=== PATIENT | female | born 1955 | race Caucasian/White ===

== ENCOUNTER 2018-01-06 14:32 | Outpatient (CLI) | payer OTHER ==
[~2018-01-06 14:32] MED LIST: ANGELIQ 0.5 MG/1 TAB PO; TARKA 2/1801 BOTTLE PO
== END 2018-01-06 14:33 | disposition home or self-care (01) ==
LOC: NUCLEAR 14:32
DX: D70.8 Other neutropenia (principal); D69.6 Thrombocytopenia, unspecified
CPT/HCPCS: 78215; A9541

== ENCOUNTER → 2018-02-01 | Emergency (ER) | payer OTHER ==
[~2018-02-01] VITALS: Ht 170.2 cm; Wt 70.8 kg
[~2018-02-01] MED LIST changes: +CEPHALEXIN500 M1 PO; +FLONASE ALLERG9.9 ML NASAL; +MEDROLPACK PO; +TAMS0.4C PO
== END | disposition home or self-care (01) ==
LOC: ER 22:58
DX: R10.32 Left lower quadrant pain (principal); N20.2 Calculus of kidney with calculus of ureter; J32.8 Other chronic sinusitis

== ENCOUNTER 2019-06-15 10:22 | Outpatient (CLI) | payer OTHER | END 2019-06-15 17:00 | disposition home or self-care (01) | LOC: TOM 10:22 | DX: B19.20 Unspecified viral hepatitis C without hepatic coma (principal); R10.84 Generalized abdominal pain ==

== ENCOUNTER → 2020-09-07 | Outpatient (CLI) | payer OTHER | END | disposition home or self-care (01) | LOC: OFIC 805 15:11 | PROVIDERS: ATTEND Otolaryngology | DX: J34.2 Deviated nasal septum (principal); J30.89 Other allergic rhinitis; R09.81 Nasal congestion ==

== ENCOUNTER 2021-01-31 10:00 | Day surgery (SDC) | payer OTHER ==
[~2021-01-31] VITALS: Ht 167.6 cm; Wt 68.5 kg
[2021-01-31] MEDS ORDERED: ELETRIPTAN HBR40 MG (11:55)
[2021-01-31] MEDS ORDERED: PERCOCET 5-3251 EACH PO (14:22)
[2021-01-31] MEDS ORDERED: ALEVE220 M1 PO (14:22)
[2021-01-31] MEDS ORDERED: DUI500 PO (14:22)
== END 2021-01-31 17:20 | disposition home or self-care (01) ==
LOC: CIR.AMB 10:00 → EDSTATUS 10:15 → SEC-K 15:26 → O/R 15:26 → CIR.AMB 17:20
PROVIDERS: ATTEND General Practice
DX: S52.532A Colles' fracture of left radius, initial encounter for closed fracture (principal); S52.612A Displaced fracture of left ulna styloid process, initial encounter for closed fracture; Z20.822 Contact with and (suspected) exposure to COVID-19
CPT/HCPCS: 25609; 20902; 25652; C1776

== ENCOUNTER 2021-08-04 08:00 | Outpatient (CLI) | payer OTHER ==
[~2021-08-04 08:00] MED LIST changes: +ALEVE220 M1 PO; +DICLOFENAC POTA50 MG PO; +DUI500 PO; +ELETRIPTAN HBR40 MG; +METHOCARBAMOL500 MG PO; +NABUMETONE750 MG PO; +PERCOCET 5-3251 EACH PO; +VOLTAREN ARTHRI20 GM TOP
== END 2021-08-04 08:30 | disposition home or self-care (01) ==
LOC: PPH VACUNA 08:00
PROVIDERS: ATTEND Emergency Medicine Pediatric Emergency Medicine
DX: Z23 Encounter for immunization (principal)

== ENCOUNTER 2022-04-25 21:44 | Emergency (ER) | payer OTHER ==
[~2022-04-25] VITALS: Ht 165.1 cm; Wt 74.8 kg
[2022-04-26] MEDS ORDERED: PEPCID40 MG PO (06:44)
== END 2022-04-26 07:28 ==
LOC: ER 21:44
DX: R11.10 Vomiting, unspecified (principal)

== ENCOUNTER 2022-09-19 14:53 | Outpatient (CLI) | payer OTHER ==
[~2022-09-19 14:53] MED LIST changes: +PEPCID40 MG PO
== END 2022-09-19 15:09 | disposition home or self-care (01) ==
LOC: RAD 14:53
PROVIDERS: ATTEND Chiropractor
DX: M76.62 Achilles tendinitis, left leg (principal)

== ENCOUNTER 2023-06-18 07:45 | Emergency (ER) | payer OTHER ==
[~2023-06-18] VITALS: Ht 167.6 cm; Wt 66.2 kg
== END 2023-06-18 10:19 | disposition home or self-care (01) ==
LOC: ER 07:45
DX: M54.89 Other dorsalgia (principal)

== ENCOUNTER 2023-08-26 13:50 | Outpatient (CLI) | payer OTHER | END 2023-08-26 15:00 | disposition home or self-care (01) | LOC: MAMO-SONO 13:50 | PROVIDERS: ATTEND General Practice | DX: N64.59 Other signs and symptoms in breast (principal); Z12.31 Encounter for screening mammogram for malignant neoplasm of breast ==

== ENCOUNTER 2023-09-09 13:00 | Outpatient (CLI) | payer OTHER | END 2023-09-09 13:01 | disposition home or self-care (01) | LOC: NUCLEAR 13:00 | PROVIDERS: ATTEND General Practice | DX: M19.90 Unspecified osteoarthritis, unspecified site (principal) ==

== ENCOUNTER 2024-07-19 05:27 | Emergency (ER) | payer OTHER ==
[~2024-07-19] VITALS: Ht 167.6 cm; Wt 66.7 kg
[2024-07-19] MEDS ORDERED: FAMOTIDINE/PF 20 MG in 0.9 % SODIUM CHLORIDE 8 ML IV PUSH STA (05:50)
[2024-07-19] MEDS ORDERED: HYOSCYAMINE SULFATE 0.125 MG TAB.SUBL ONE (05:52)
[2024-07-19] MEDS ORDERED: FAMOTIDINE/PF 20 MG/2 ML VIAL ONE (05:53)
[2024-07-19] MEDS ORDERED: DIPHENOXYLATE HCL/ATROPINE 1 UDTAB TABLET PO ONE (06:00)
[2024-07-19] MEDS ORDERED: 0.9 % SODIUM CHLORIDE 1,000 ML IV SCH (06:00)
[2024-07-19] MEDS ORDERED: HYOSCYAMINE SULFATE 0.125 MG TAB.SUBL SL ONE (06:00)
[2024-07-19 08:03] LABS: ALBUMIN 3.6 gm/dL (3.4-5.0); BILIRUBIN TOTAL 0.45 mg/dL (0.3-1.2); CALCIUM 8.8 mg/dL (8.5-10.1); CREATININE SERUM 0.51 mg/dL (0.55-1.02); GFR 120.65; GLOBULINA 3.3 G/DL (2.4-3.5); POTASSIUM 3.71 mEq/L (3.5-5.1); TOTAL PROTEIN 6.9 gm/dL (6.4-8.2)
[2024-07-19 08:23] LABS: HEMATOCRIT 40.1 % (36.0-45.00); HEMOGLOBIN 13.9 g/dL (12.0-15.00); MEAN CORPUSCULAR HEMOGLOBIN 30.1 pg (27.00-32.0); MEAN CORPUSCULAR HGB CONC 34.5 g/dl (32.0-36.0); RED BLOOD COUNT 4.61 M/uL (4.00-6.00); RED CELL DISTRIBUTION WIDTH 13.3 % (11.5-14.5)
[2024-07-19 08:52] LABS: PLATELET COUNT 88 K/uL (150-450)
[2024-07-19 09:21] LABS: URINE APPEARANCE Turbid; URINE BILIRRUBIN Negative (NEGATIVE); URINE BLOOD Negative; URINE COLOR Yellow; URINE GLUCOSE Negative (NEGATIVE); URINE KETONE Negative (NEGATIVE); URINE LEUKOCYTE Negative; URINE NITRATE Negative; URINE PROTEIN Negative (NEGATIVE)
[2024-07-19 09:32] LABS: URINE BACTERIA 331.3 uL (0.0-1933); URINE EPITHELIAL CELLS 51.7 uL (0.0-38.8); URINE RBC 6.1 uL (0.0-20.8); URINE WBC 9.7 uL (0.0-23.2)
[2024-07-19 09:39] LABS: URINE CAST 0.45 uL (0.0-1.40)
== END 2024-07-19 10:56 | disposition home or self-care (01) ==
LOC: ER 05:28
PROVIDERS: General Practice
DX: K52.89 Other specified noninfective gastroenteritis and colitis (principal); D69.3 Immune thrombocytopenic purpura; N20.0 Calculus of kidney

== ENCOUNTER → 2025-01-04 | Outpatient (CLI) | payer OTHER | END | disposition home or self-care (01) | LOC: MAMO-SONO 15:12 | PROVIDERS: ATTEND General Practice | DX: N60.11 Diffuse cystic mastopathy of right breast (principal); N60.12 Diffuse cystic mastopathy of left breast; N63.0 Unspecified lump in unspecified breast; N64.0 Fissure and fistula of nipple ==

== ENCOUNTER 2025-09-18 14:59 | Emergency (ER) | payer OTHER ==
[~2025-09-18] VITALS: Ht 167.6 cm; Wt 65.8 kg
[2025-09-18] MEDS ORDERED: LACTOBACILLUS ACIDOPHILUS 1 CAP CAP PO ONE ×2 (17:00→17:27)
[2025-09-18] MEDS ORDERED: ONDANSETRON HCL 2 MG/ML VIAL IV ONE (17:00)
[2025-09-18] MEDS ORDERED: FAMOTIDINE/PF 20 MG/2 ML VIAL IV ONE (17:00)
[2025-09-18] MEDS ORDERED: 0.9 % SODIUM CHLORIDE 1,000 ML IV SCH (17:00)
[2025-09-18] MEDS ORDERED: ACETAMINOPHEN 500 MG GEL..CAP PO ONE ×2 (17:00→17:26)
[2025-09-18] MEDS ORDERED: ONDANSETRON HCL 2 MG/ML VIAL ONE (17:26)
[2025-09-18] MEDS ORDERED: FAMOTIDINE/PF 20 MG/2 ML VIAL ONE (17:27)
[2025-09-18 18:30] LABS: BASO % 0.2 % (0.1-1.2); EOS # 0.00 (0.04-0.54); EOS % 0.0 % (0.7-7.0); LYMPH # 0.44 (1.18-3.74); LYMPH % 3.8 % (19.3-53.1); MEAN PLATELET VOLUME 11.70 fl (9.4-12.4); MONO # 1.21 (0.24-0.82); MONO % 10.4 % (4.7-12.5); NEUT # 9.90 (1.56-6.13); NEUT % 85.1 % (34.0-71.1); RED CELL DISTRIBUTION WIDTH 13.0 % (11.6-14.4)
[2025-09-18 18:53] LABS: URINE APPEARANCE Turbid; URINE BILIRRUBIN Negative (NEGATIVE); URINE BLOOD Large; URINE COLOR Dark Yellow; URINE GLUCOSE Negative (NEGATIVE); URINE KETONE 15 (NEGATIVE); URINE LEUKOCYTE Large; URINE NITRATE Negative; URINE UROBILINOGEN 1.0 E.U./dl
[2025-09-18 18:59] LABS: URINE CAST 4.46 uL (0.0-1.40); URINE EPITHELIAL CELLS 59.3 uL (0.0-38.8); URINE RBC 85.6 uL (0.0-20.8)
[2025-09-18 19:03] LABS: TYPE CELLS SQUAMOUS; URINE BACTERIA > 9821.5 uL (0.0-1933); URINE PROTEIN 100 (NEGATIVE); URINE WBC > 5548.3 uL (0.0-23.2)
[2025-09-18 19:22] LABS: BUN CREA RATIO 34.0 (7.0-25.0); CREATININE SERUM 0.71 mg/dL (0.55-1.02); GFR 81.86; GLUCOSE FASTING 127.0 mg/dL (65-100); OSMOLALITY SERUM 289.0 MOSM/KG (275-295)
[2025-09-18 19:26] LABS: COVID-19 AG NEGATIVE (NEGATIVE)
[2025-09-18] MEDS ORDERED: LEVOFLOXACIN500 MG PO (21:38)
[2025-09-18] MEDS ORDERED: KETO10TA2 PO (21:38)
== END 2025-09-18 22:42 | disposition home or self-care (01) ==
LOC: ER 14:59
PROVIDERS: Student in an Organized Health Care Education/Training Program
DX: N39.0 Urinary tract infection, site not specified (principal); G43.809 Other migraine, not intractable, without status migrainosus; Z20.822 Contact with and (suspected) exposure to COVID-19